=== PATIENT | female | born 1960 | race Caucasian/White ===

== ENCOUNTER 2017-03-28 07:10 | Emergency (ER) | payer BC ==
[2017-03-28] MEDS ORDERED: LORazepam 0.5 MG TABLET ONE (08:01)
--- NOTE | 2017-03-28 08:22 | ER PHYSICIAN DOCUMENTATION ---
Physician Documentation [facility] Name:Jen Murrell Age:56 yrs Sex:Female :1960 Arrival Date:03/28/2017 Time:07:10 Bed4 Private MD: Kurt Schmidt Disposition: 03/28 07:48 Critical Care: not applicable. cd 08:13 Chart complete. cd Disposition: 03/28/17 07:49 Discharged to Home/Self Care. Impression: Dyspnea - : Due to Altitude Illness, Dehydration, Anxiety Reaction. - Condition is Good. - Discharge Instructions: DEHYDRATION (5y-Adult), DYSPNEA, Anguish - ANXIETY REACTION. - Medical Reconciliation form form. - Follow up: Private Physician; When: 1 week; Reason: Recheck today's complaints, Continuance of care. - Problem is new. - Symptoms have improved. - Notes: Avoid alcohol, higher elevation and exercise while at this elevation. Drink 2 - 3 quarts of water every day. Take Tylenol for headaches. Eat Complex Carbohydrates while at altitude HPI: 08:00 This 56 yrs old Female presents to ER via Private Vehicle with complaints of cd Shortness Of Breath, Headache. 08:00 The patient has shortness of breath at rest, that woke him/her from sleep, that cd occurred at home, Patient is very healthy, walking [place] [id number] steps every day, just arrived to [place] from [place]. Awoke last night with headache, unable to take a deep breath, anxiety, sore throat, one bought of diarrhea and mild nausea. She flew in from [place] yesterday and drove to this elevation. She has had very little sleep over the last few days. She took a Midrin last night for her headache.. Onset: The symptom(s)/episode began/occurred acutely, last night. Duration: The symptoms are continuous, and are unchanged since they started. Associated signs and symptoms: Pertinent positives: nausea, Pertinent negatives: chest pain, productive cough, diaphoresis, dizziness, fever, hemoptysis, vomiting. Risk Factors Risk factors for coronary artery disease include: This patient does not have any risk factors for coronary artery disease. The risk factors for pulmonary embolism include: This patient does not have any risk factors for a pulmonary embolism. The patient has not experienced similar symptoms in the past. Historical: - Allergies: No known drug Allergies; - Home Meds: 1. Vitamin D Oral - PMHx: BOWEL CONTROL PROBLEMS; - PSHx: BUTTOCKS IMPLANT FOR BOWELS; - Tetanus: < 10 years. - Ebola Screening: : Patient negative for fever greater than or equal to 101.5 degrees Fahrenheit, and additional compatible Ebola Virus Disease symptoms. Patient denies exposure to infectious person. Patient denies travel to an Ebola-affected area in the 21 days before illness onset. . - Immunization history: Flu Vaccine < 1 year Flu Vaccine < 1 year. - Social history: Smoking status: Patient states was never smoker of tobacco. ROS: 08:07 Constitutional: Positive for poor PO intake, Negative for chills, fever. cd 08:07 ENT: Positive for sore throat, Negative for ear pain, sinus congestion, sinus pain. 08:07 Cardiovascular: Negative for chest pain, palpitations. 08:07 Respiratory: Positive for shortness of breath, Negative for cough, hemoptysis, pleurisy, sputum production, wheezing. 08:07 Abdomen/GI: Positive for nausea, diarrhea, anorexia, Negative for abdominal pain, vomiting. 08:07 Neuro: Positive for headache, Negative for altered mental status, dizziness, syncope, near syncope. 08:07 All other systems are negative. Exam: 08:08 Back: No spinal tenderness. No costovertebral tenderness. Full range of motion. cd Skin: Warm, dry with normal turgor. Normal color with no rashes, no lesions, and no evidence of cellulitis. MS/ Extremity: Pulses equal, no cyanosis. Neurovascular intact. Full, normal range of motion. 08:08 Neuro: Awake and alert, GCS 15, oriented to person, place, time, and situation. cd Cranial nerves II-XII grossly intact. Motor strength 5/5 in all extremities. Sensory grossly intact. Cerebellar exam normal. Normal gait. 08:08 Constitutional: The patient appears alert, awake, non-diaphoretic, non-toxic, well developed, well nourished, anxious. 08:08 ENT: TM's: are normal, Posterior pharynx: is normal, Voice: is normal. 08:08 Cardiovascular: Rate: normal, Rhythm: regular, Pulses: no pulse deficits are appreciated, Heart sounds: normal, Edema: is not appreciated. 08:08 Respiratory: the patient does not display signs of respiratory distress, Respirations: normal, no acute changes, is not noted, Breath sounds: are normal, clear throughout. 08:08 Abdomen/GI: Inspection: abdomen appears normal, Palpation: abdomen is soft and non-tender. Vital Signs: 07:26 BP 154 / 93; Pulse 85; Resp 16; Temp 97.8; Pulse Ox 95% on R/A; Weight 58.06 kg; Height 5 ft. 6 in. (167.64 cm); Pain 2/10; 08:10 BP 156 / 87; Pulse 76; Resp 16; Pulse Ox 96% on R/A; Pain 0/10; lc 08:10 Pain 0/10; lc 07:26 Body Mass Index 20.66 (58.06 kg, 167.64 cm) MDM: 07:47 Patient medically screened. cd 08:13 Antibiotic administration: Not indicated. Data reviewed: vital signs, nurses notes, old cd medical records, and as a result, I will discharge patient. Data interpreted: Pulse oximetry: on room air is 95 %. Interpretation: normal. Response to treatment: the patient's symptoms have mildly improved after treatment, and as a result, I will discharge patient. Dispensed Medications: 07:50 Drug: Ativan 0.5 mg; Route: PO; 08:18 Follow up: Response: Anxiety decreased lc Signatures: Nasrin Gomez RN RN Kurt Aguilar MD MD cd
--- NOTE | 2017-03-28 08:22 | ER NURSING DOCUMENTATION ---
Nurse's Notes [facility] Name:Jen Murrell Age:56 yrs Sex:Female :1960 Arrival Date:03/28/2017 Time:07:10 Bed4 Private MD: Diagnosis:Dyspnea-: Due to Altitude Illness;Dehydration;Anxiety Reaction Presentation: 03/28 07:21 Presenting complaint: Patient states: ARRIVED YESTERDAY FROM [facility], C/O ST AND COUGH lc BEFORE TRAVEL. LAST NIGHT C/O LOZA,SOB, AND DIARRHEA. TRIED MIDRIN FOR LOZA AND LOMOTIL. NO FEVER, N/V. Transition of care: patient was not received from another setting of care. Notified ED Physician of patient's arrival and CC. 07:21 Acuity: JULIA 3 lc 07:21 Method Of Arrival: Private Vehicle lc Triage Assessment: 07:24 General: Appears in no apparent distress, Behavior is anxious, cooperative. Pain: lc Complains of pain in LOZA BEHIND LEFT EYE, TYPICAL FOR HER Pain does not radiate. Pain At worst was 2 out of 10 on a pain scale. Quality of pain is described as dull, Pain began 4 hours ago. Neuro: Level of Consciousness is awake, alert, Oriented to person, place, time, event. Respiratory: Airway is patent Respiratory effort is even, unlabored, Respiratory pattern is regular, symmetrical, Breath sounds are clear bilaterally. Reports shortness of breath cough that is non-productive, Onset: The symptoms/episode began/occurred gradually, the patient has mild shortness of breath. GI: Abdomen is flat, Abd is soft and non tender X 4 quads. Reports diarrhea, Denies nausea, vomiting. Derm: Skin is pink, warm & dry. Historical: - Allergies: No known drug Allergies; - Home Meds: 1. Vitamin D Oral - PMHx: BOWEL CONTROL PROBLEMS; - PSHx: BUTTOCKS IMPLANT FOR BOWELS; - Tetanus: < 10 years. - Ebola Screening: : Patient negative for fever greater than or equal to 101.5 degrees Fahrenheit, and additional compatible Ebola Virus Disease symptoms. Patient denies exposure to infectious person. Patient denies travel to an Ebola-affected area in the 21 days before illness onset. . - Immunization history: Flu Vaccine < 1 year Flu Vaccine < 1 year. - Social history: Smoking status: Patient states was never smoker of tobacco. Screenin:28 Infectious Disease Risk None. Abuse screen: Denies threats or abuse. Denies injuries lc from another. Nutritional screening: No deficits noted. Assessment: 07:28 See Triage Assessment done by same RN. 08:00 Cardiovascular: Rhythm is regular. 08:10 Reassessment: Patient states feeling better. Patient states symptoms have improved. lc Patient appears in no apparent distress at this time. took 1000cc po fluids, VSS. Vital Signs: 07:26 BP 154 / 93; Pulse 85; Resp 16; Temp 97.8; Pulse Ox 95% on R/A; Weight 58.06 kg; Height 5 ft. 6 in. (167.64 cm); Pain 2/10; 08:10 BP 156 / 87; Pulse 76; Resp 16; Pulse Ox 96% on R/A; Pain 0/10; lc 08:10 Pain 0/10; lc 07:26 Body Mass Index 20.66 (58.06 kg, 167.64 cm) ED Course: 07:12 Patient arrived in ED. lm3 07:21 Nasrin Gomez, RN is Primary Nurse. 07:23 Triage completed. 07:28 Valuables Remains with patient Patient has correct armband on for positive lc identification. Placed in gown. Bed in low position. Call light in reach. Adult w/ patient. Head of bed elevated. 07:47 Kurt Nielsen MD is Attending Physician. cd Administered Medications: 07:50 Drug: Ativan 0.5 mg; Route: PO; lc 08:18 Follow up: Response: Anxiety decreased lc Intake: 08:20 PO: 1000ml; Total: 1000ml. lc 08:20 voided in bathroom Outcome: 07:49 Discharge ordered by . cd 08:10 Discharged to home ambulatory, with significant other. 08:10 Condition: stable 08:10 Discharge Assessment: Patient awake, alert and oriented x 3. No cognitive and/or functional deficits noted. Patient verbalized understanding of disposition instructions. 08:10 Discharge instructions given to patient, significant other, Instructed on 08:10 Instructed on discharge instructions, follow up and referral plans. REST AND FLUIDS Demonstrated understanding of instructions. 08:21 Patient left the ED. 03/29 19:26 Discharge F/U Call: Spoke with: patient. Overall Care on a scale of 1-10 with 10 nf being the best care, you rate our care as: the rating of 10. Other comments: reports significant improvement Signatures: Nasrin Gomez RN RN lc Friel, Nicole, RN RN nf Daley, Chris, MD MD cd McKibbon-Moore, Lisa 3
== END 2017-03-28 08:21 | disposition home or self-care (01) ==
LOC: ER 07:10
DX: R06.00 Dyspnea, unspecified (principal); E86.0 Dehydration; R51 Headache; T70.29XA Other effects of high altitude, initial encounter; F41.9 Anxiety disorder, unspecified; J02.9 Acute pharyngitis, unspecified; R11.0 Nausea; R19.7 Diarrhea, unspecified
CPT/HCPCS: 99283